=== PATIENT | female | born 1995 | race Caucasian/White ===

== ENCOUNTER 2017-01-02 11:14 | Inpatient (IN) | payer OTHER ==
--- NOTE | ~2017-01-02 | PN ---
Unit #: [id number] #: [id number] Patient: DONOVAN LONGO [id number] [facility] [address] [place] [address] [id number] I MR#: [id number] NAME: DONOVAN LONGO ROOM: P171 Age: 21 Sex: F Admission Date: 01/02/2017 : 1995 Attending Physician: Hector Negrete M.D. Admitting Physician: Hector Negrete M.D. Primary Care Physician: Primary Care Physician Leyla HIRSCH NOTES DATE OF SERVICE: 01/04/2017 DISCUSSION Donovan Longo is a 21-year-old female, seen on 01/04/2017. The patient interviewed, chart reviewed, and obtained information from nursing staff. The patient was compliant and cooperative. Mood is sad, dysphoric, withdrawn, isolative, guarded. REVIEW OF SYSTEMS Complete review of systems unremarkable. MENTAL STATUS EXAMINATION General appearance, the patient dressed casually. Attention span and concentration, fair. Oriented in place and person. Mood and affect were sad and dysphoric. Speech, monotone. Thought process, concrete. The patient denied any thoughts of harming self or others. Denied any psychotic symptom. Withdrawn, isolative. Recent and remote memory, poor. Insight and judgment, poor. DIAGNOSES 1. Mood disorder, not otherwise specified. 2. Polysubstance abuse. ASSESSMENT AND PLAN Advised to continue with current medication and therapeutic protocol. We will monitor response to medication and make further adjustment of medication. Dictated by... Sugar Houston/lori TD: 01/06/2017 07:18 JOB #: [id number] Unit #: [id number] #: [id number] Patient: DONOVAN LONGO [facility] PROGRESS NOTES X Hector Negrete MD PROGRESS NOTE
--- NOTE | ~2017-01-02 | PN ---
Unit #: [id number] #: [id number] Patient: DONOVAN LONGO [id number] [facility] [address] [place] [address] [id number] MR#: [id number] NAME: DONOVAN LONGO ROOM: P171 Age: 21 Sex: F Admission Date: 01/02/2017 : 1995 Attending Physician: Hector Negrete M.D. Admitting Physician: Hector Negrete M.D. Primary Care Physician: Primary Care Physician Leyla GOMEZ PROGRESS NOTES DATE 01/03/2017 DISCUSSION Ms. Longo is a 21-year-old female seen on 01/03/2017 in room 171 on [facility] at [facility]. The patient sad, depressed with flat affect, withdrawn, isolative. The patient was somewhat sleepy, drowsy. Complete review of systems unremarkable. MENTAL STATUS EXAMINATION General appearance, the patient dressed casually. Attention span and concentration fair. Oriented to place and person. Mood and affect sad, dysphoric, anxious. Speech regular rate. Thought process goal directed. The patient denied any thoughts of harming self or others or any psychotic symptoms. Recent and remote memory poor. Insight and judgement poor. DIAGNOSES Polysubstance abuse Mood disorder NOS ASSESSMENT/PLAN Advise to use Vistaril 25 mg three times a day for anxiety and Celexa 20 mg daily for mood symptoms. If needed consider further adjustment of medication. Dictated by... Sugar Houston/eddie TD: 01/06/2017 04:27 JOB #: [id number] [facility] PROGRESS NOTES X Hector Negrete MD PROGRESS NOTE
--- NOTE | ~2017-01-02 | PA ---
Unit #: [id number] #: [id number] Patient: DONOVAN LONGO [id number] [facility] [address] [place] [address] [id number] I MR#: [id number] NAME: DONOVAN LONGO ROOM: 71 Age: 21 Sex: F Admission Date: 01/02/2017 : 1995 Date of Assessment: Attending Physician: Hector Negrete M.D. Admitting Physician: Hector Negrete M.D. Primary Care Physician: Primary Care Physician No PSYCHIATRIC ASSESSMENT INFORMANTS The patient reliability, fair informant and chart reliability, good. CHIEF COMPLAINT Drug intoxication and use of methamphetamine, marijuana, Valium, and Xanax. HISTORY OF PRESENT ILLNESS Ms. Bradshaw is a 21-year-old female, admitted with the above-mentioned complaint on a 72-hour hold. The patient was assessed at [facility] and a family member located her with a male. The patient has been missing for 6 to 7 days, the patient did not return home for her Suboxone. Mother stated that the patient will use anything and everything. The patient appeared intoxicated and paranoid related to methamphetamine use. The patient has been staying with a male friend for the past week and using Xanax and meth. The patient believes that others are talking about her. The patient having paranoid thoughts and wanted to continue with Suboxone. The patient appears to be under the influence at the time of admission and very paranoid. The patient has a history of outpatient treatment through [facility] outpatient [facility] rehab in [place] in 2011. The patient lives with her parents. The patient has a history of substance abuse since age 13. The patient's drug use is excessive and extreme. According to the family, mother reported that the patient has been making suicidal statement such as "I should be ." The patient, however, denied any suicidal ideation to the automobile service writer. Needing inpatient admission at this time for psychiatric stabilization. PAST PSYCHIATRIC HISTORY Remarkable for history of treatment as mentioned above. FAMILY HISTORY/SOCIAL HISTORY The patient lives with her parents and has good support system from family. No history of alcoholism in father. No known history of any abuse or any developmental delays. MEDICAL HISTORY Unremarkable for any chronic medical condition. Musculoskeletal; muscle strength and tone, no atrophy or abnormal movement. Gait normal. MEDICATION HISTORY The patient is on acyclovir, Carafate, Prilosec, and Suboxone. ALLERGIES No known drug allergies. Unit #: [id number] #: [id number] Patient: DONOVAN LONGO SUBSTANCE ABUSE HISTORY The patient reported use of alcohol once in a blue fine according to the intake report; marijuana, age of onset 14; opioid; amphetamine; and prescription medication such as Xanax. Also, using marijuana since age 14. The patient denied any history of any blackout, but history of IV drug use. REVIEW OF SYSTEMS HEENT: Eyes, clear. Ears, nose, mouth, and throat; clear. CARDIOVASCULAR: Unremarkable. RESPIRATORY: Unremarkable. GI: Unremarkable. : Unremarkable. SKIN: Unremarkable. LYMPH NODE: Unremarkable. NEUROLOGIC: Unremarkable. ENDOCRINE: Unremarkable. HEMATOLOGIC: Unremarkable. ALLERGIC/IMMUNOLOGIC: Unremarkable. MUSCULOSKELETAL: Muscle strength and tone, no atrophy or abnormal movement. Gait normal. MENTAL STATUS EXAMINATION CONSTITUTIONAL: Measurement of vital signs; temperature 98.4, heart rate 86, respiratory rate 16, blood pressure 105/60, height 5 feet, and weight 87 pounds. GENERAL APPEARANCE: The patient dressed casually. The patient did not show any facial deformity. MUSCULOSKELETAL: Please see above. PSYCHIATRIC EXAMINATION Description of speech; regular rate, normal volume, normal articulation, coherent, and spontaneous. Description of thought process, goal directed. Description of association, intact. Description of abnormal psychotic thinking; the patient denied any, but reported she was having paranoia and mood lability, but sad, depressed, and anxious. History of substance abuse. Description of the patient's judgment; concerning everyday activity, poor. Social situation, poor. Concerning psychiatric condition, poor. The patient currently denied any suicidal or homicidal ideation. Complete mental status examination; oriented in time, place, and person. Recent and remote memory, fair. Attention span and concentration, fair. Language, able to name object and repeat phrases. Fund of knowledge, aware of current event and passive vocabulary intact. Mood and affect, sad and dysphoric. Insight and judgment, fair to poor. ASSETS AND LIABILITIES Assets, the patient able to articulate and able to take care of her ADL. Liability, history of substance abuse. ADMITTING DIAGNOSES Psychiatric: Psychosis, not otherwise specified, F29.0; amphetamine use disorder, moderate, F15.20; sedative hypnotic use disorder, F13.20; and mood disorder, not otherwise specified, F32.9. Secondary diagnosis: Deferred. Unit #: [id number] #: [id number] Patient: DONOVAN LONGO Medical diagnosis: None. Stressors: Psychosocial stressors. PSYCHIATRIC PLAN AND TREATMENT GOAL AND DISCHARGE PLAN 1. Advised to admit the patient on the inpatient unit. Provide safe, supportive, and structured environment. 2. Ordered labs; CBC, CMP, UA, and UDS. 3. Precaution for psychosis, aggression, and self-harm. 4. Detox monitoring and detox protocol. If needed, consider medication such as Celexa for depression. The patient to attend all the programing, group therapy, individual therapy, and family session. TREATMENT GOAL To attain euthymic mood, gain insight into her problem, and learn coping skills. DISCHARGE PLAN Plan to stabilize the patient and consider followup in outpatient program. ESTIMATED LENGTH OF STAY 3 to 5 days. Dictated by... Hector Negrete M.D. ESPINOZA/lori TD: 01/04/2017 18:23 JOB #: [id number] PSYCHIATRIC ASSESSMENT X Hector Negrete MD PSYCHIATRIC ASSESSMENT
--- NOTE | ~2017-01-02 | HP ---
Unit #: [id number] #: [id number] Patient: DONOVAN LONGO [id number] [place] [address] [id number] I MR#: [id number] NAME: DONOVAN LONGO ROOM: P171 Age: 21 Sex: F Admission Date: 01/02/2017 : 1995 Attending Physician: Hector Negrete M.D. Admitting Physician: Hector Negrete M.D. Primary Care Physician: Primary Care Physician No HISTORY AND PHYSICAL HISTORY OF PRESENT ILLNESS Donovan is a 21 year old admitted to [facility] because of her poly-illicit substance abuse to include benzodiazepines, meth and Suboxone. PAST MEDICAL HISTORY 1. Long history of polysubstance abuse. 2. History of withdrawal seizures. PAST SURGICAL HISTORY Nothing reported. ALLERGIES Prozac, Succinylcholine. SOCIAL HISTORY Smokes 1 pack per day. Drinks alcohol frequently. Admits to a long history of illicit drug use. FAMILY HISTORY Medically noncontributory. REVIEW OF SYSTEMS CONSTITUTIONAL: No fever or chills. HEENT: Denies any sore throat, ear pain or runny nose. CARDIOVASCULAR: Denies chest pain, irregular heart rhythm or palpitations. CHEST: Denies shortness of breath or cough. No hemoptysis. GASTROINTESTINAL: Denies nausea, vomiting, diarrhea or chronic constipation. ENDOCRINE: Denies history of increased thirst or urination. No recent significant weight loss or gain. GENITOURINARY: Denies dysuria, frequency, or hematuria. SKIN: Denies any rashes. HEMATOLOGIC: Denies history of increased bleeding or bruising. MUSCULOSKELETAL: Denies any hot, swollen joints. No generalized muscle pain. NEUROLOGIC: Denies problems with vision or speech. No frequent, severe headaches. No numbness, tingling or weakness in any extremities. Denies loss of bladder or bowel control. CURRENT MEDICATIONS No orders received at the time of this dictation. PHYSICAL EXAMINATION Unit #: [id number] #: [id number] Patient: DONVOAN LONGO GENERAL: Alert, petite, in no apparent distress. VITAL SIGNS: Blood pressure 100/60, heart rate 100, respirations 16, temperature 98.6. WEIGHT: 87 pounds. HEIGHT: 5 feet 0 inches. SKIN: Warm and dry without rash or lesion. HEENT: Normocephalic. TMs not viewed. Oral and nasal passages clear. Conjunctivae clear. PERRLA. EOMs intact. NECK: Supple without lymphadenopathy or thyromegaly. HEART: Regular rate and rhythm without murmur. LUNGS: Clear. ABDOMEN: Soft, nontender. : Not done. EXTREMITIES: No evidence of cyanosis, clubbing or edema. Moves all without focal deficit. NEUROLOGICAL: Grossly within normal limits. Cranial Nerves: II: Visual tidwell are intact. III, IV AND : Extraocular movements are intact. Pupils are equal, round and reactive to light. V: Facial sensation is grossly normal. VII: Facial movements and expression are normal. VIII: Auditory acuity grossly intact. IX, X: Uvula is midline. Phonation is normal. XI: Patient shrugs shoulders and turns head normally. XII: Tongue protrudes in the midline. Sensory and Motor Function: Sensory and motor sensation is grossly normal. Motor: moves all extremities well. Coordination: Gait is normal. Deep Tendon Reflexes: Intact. IMPRESSION 1. Psychiatric admission. 2. History of poly-illicit substance abuse. 3. This patient is underweight for her age and height. RECOMMENDATIONS PSYCHIATRIC: Per psychiatrist. MEDICAL: 1. See no contraindications to participate in facility's activities. 2. Detox per protocol. 3. Ensure with each meal. MEDICAL PROGNOSIS Good. MEDICAL CONDITION Stable. Dictated by... Dunia Longo P.A.-C. for Sugar Barrzaa/iris TD: 01/02/2017 16:55 JOB #: [id number] Unit #: [id number] #: [id number] Patient: DONOVAN LONGO HISTORY AND PHYSICAL X Dunia Longo HISTORY AND PHYSICAL
--- NOTE | ~2017-01-02 | PN ---
Unit #: [id number] #: [id number] Patient: DONOVAN LONGO [id number] [facility] [address] [place] [address] [id number] I MR#: [id number] NAME: DONOVAN LONGO ROOM: 71 Age: 21 Sex: F Admission Date: 01/02/2017 : 1995 Attending Physician: Hector Negrete M.D. Admitting Physician: Hector Negrete M.D. Primary Care Physician: Primary Care Physician Leyla HIRSCH NOTES DATE OF SERVICE: 01/05/2017 DISCUSSION Ms. Donovan Longo is a 21-year-old female, seen on 01/05/2017. The patient interviewed, chart reviewed, and obtained information from nursing staff. The patient was compliant and cooperative. Mood was sad and dysphoric, but able to maintain safe behavior. No aggressive behavior. Tolerating medication fairly well. Vital signs were stable. Complete review of systems unremarkable. MENTAL STATUS EXAMINATION General appearance, the patient dressed casually. Attention span and concentration, fair. Oriented in place and person. Mood and affect, sad and dysphoric. Speech, monotone. Thought process, concrete. The patient denied any thoughts of harming self or others or any psychotic symptom. Recent and remote memory, poor. Insight and judgment, poor. DIAGNOSES 1. Polysubstance abuse. 2. Mood disorder, not otherwise specified. ASSESSMENT AND PLAN Advised to continue with Celexa 20 mg daily with a plan to consider discharge tomorrow if the patient continues to do well. Dictated by... Sugar Houston/lori TD: 01/05/2017 17:31 JOB #: [id number] Unit #: [id number] #: [id number] Patient: DONOVAN LONGO [place] PROGRESS NOTES X Hector Negrete MD PROGRESS NOTE
--- NOTE | ~2017-01-02 | A ---
[facility] Nutrition Therapy DATE: 01/03/17 Patient: DONOVAN LONGO Physician: JULIA Address: [address] [facility] Room/Bed: [address], Zip: [place] [address] Admit Date: 01/02/17 Date of : [birth year] Height: 5 0 Weight: 86 [id number] NUTRITIONAL ASSESSMENT: REASON: Low BMI Admitting Dx: 21 y/o female undergoing drug and alcohol detox PMH: PSA, withdrawal seizures, 1 ppd smoker Anthropometrics: Ht: 60", Wt: 87 lbs, BMI: 17, 87% IBW Labs: No labs available Meds: Milk of Mg, Mag-al, Phenergan/zofran, MVI, Balance B-50, Thiamine, Folic acid, psych meds noted Assessment: Chart reviewed, events noted. See admitting dx and PMH as stated above, patient undergoing detox. No past weights available, patient scored 0 points on the malnutrition risk score. She reported a fair appetite with no recent weight change during the needs assessment. She is on a 72 hour hold. MD noted underweight status during his assessment and placed the patient on a regular diet with large portion entrees and chocolate Ensure TID. No further interventions necessary at this time, see recs below. Dx: Underweight r/t ETOH/drug abuse AEB BMI 17, need for large portions and ONS. Intervention: Continue current nutrition regimen Monitoring, Evaluation and Goals: 1. Adequate oral intake > 50-75% of meals/supps. 2. Gradual weight gain towards a healthy BMI range. Recommendations: 1. Continue regular diet with large portion entree at lunch and dinner. Encourage adequate solid and fluid intake. 2. Continue Ensure TID to increase oral kcal/protein intake. 3. Please weigh q 3 days for monitoring, as the patient is underweight. 4. Continue vitamins. 5. Please consult RD with any further nutritional needs. [facility] Nutrition Therapy DATE: 01/03/17 Patient: DONOVAN QING Physician: JULIA Address: [address] [facility] Room/Bed: [address], Zip: [place] [address] Admit Date: 01/02/17 Date of : [birth year] Height: 5 0 Weight: 86 39.283069 Mild nutrition risk Respectfully, Eufemia Perkins RD, [facility] [employer] [facility] cc: client file
--- NOTE | ~2017-01-02 | DS ---
Unit #: [id number] #: [id number] Patient: DONOVAN LONGO [id number] [facility] [address] [place] [address] [id number] I MR#: [id number] NAME: DONOVAN LONGO ROOM: [facility] Age: 21 Sex: F Admission Date: 01/02/2017 : 1995 Discharge Date: 01/06/2017 Attending Physician: Hector Negrete M.D. Primary Care Physician: Primary Care Physician No DISCHARGE SUMMARY REASON FOR ADMISSION Detox. DIAGNOSTIC STUDIES LABORATORY RESULTS: Unremarkable except 2+ urine, 0.2 less urobilinogen. HOSPITAL COURSE The patient was admitted to inpatient unit on 01/02/2017 and discharged on 01/06/2017. The patient was treated with behavior management, chemical dependency group, expressive therapy, psychoeducation, and detox protocol. The patient responded well with the above modalities of treatment and also treated with Celexa 20 mg daily. Subsequently, the patient was discharged with a plan to follow up in outpatient program. DISCHARGE DIAGNOSES Psychiatric: 1. Mood disorder, not otherwise specified, F32.9. 2. Amphetamine use disorder, moderate. 3. Sedative-hypnotic use disorder. Secondary diagnosis: Deferred. Medical diagnosis: None. Stressors: Psychosocial stressors. DISCHARGE INSTRUCTIONS The patient is to follow up in outpatient clinic as per social services analyst. CONDITION ON DISCHARGE The patient was pleasant and cooperative. Denied any psychotic symptom or any suicidal ideation. PROGNOSIS Guarded. DIET AND ACTIVITY As tolerated. Dictated by... Hector Negrete M.D. [facility] [place] [place]/[facility] Unit #: [id number] #: [id number] Patient: DONOVAN LONGO TD: 01/06/2017 20:48 JOB #: [id number] DISCHARGE SUMMARY X Hector Negrete MD X DISCHARGE SUMMARY
[2017-01-03 12:39] LABS: URINE APPEARANCE CLEAR; URINE BILIRUBIN NEG (NEG); URINE BLOOD NEG (NEG); URINE COLOR DK YELLOW; URINE GLUCOSE NEG (NEG); URINE KETONE NEG (NEG); URINE LEUKOCYTE ESTERASE NEG (NEG); URINE NITRATE NEG (NEG); URINE PROTEIN NEG (NEG); URINE SPECIFIC GRAVITY 1.012 (1.003-1.035); URINE UROBILINOGEN 0.2 MG/DL (NEG)
[2017-01-03 12:49] LABS: THYROID STIMULATING HORMONE 0.34 uIU/ml (0.34-5.60)
[2017-01-03 12:56] LABS: FREE THYROXIN (T4) 1.18 ng/dL (0.58-1.64)
== END 2017-01-06 15:00 | disposition home or self-care (01) | DRG 885 ==
LOC: P1E 11:14
PROVIDERS: Psychiatry & Neurology Psychiatry
PROC: HZ2ZZZZ Detoxification Services for Substance Abuse Treatment (ICD-10-PCS; principal; 2017-01-02)
DX: F29 Unspecified psychosis not due to a substance or known physiological condition (principal); F13.20 Sedative, hypnotic or anxiolytic dependence, uncomplicated; F15.20 Other stimulant dependence, uncomplicated; F39 Unspecified mood [affective] disorder; F17.200 Nicotine dependence, unspecified, uncomplicated; Z88.8 Allergy status to other drugs, medicaments and biological substances; F19.10 Other psychoactive substance abuse, uncomplicated
CPT/HCPCS: 81003; 84439; 84443; 84703; 86592